=== PATIENT | female | born 2000 | race Two or more races ===

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

== ENCOUNTER 2019-06-17 05:52 | Emergency (ER) | payer BC ==
[~2019-06-17] VITALS: Ht 160 cm; Wt 56.8 kg
[2019-06-17] MEDS ORDERED: NS 1,000 ML IV ONE (06:45)
[2019-06-17] MEDS ORDERED: diphenhydrAMINE INJ 50MG/ML VIAL (J1200) IV ONE (06:45)
[2019-06-17] MEDS ORDERED: methylPREDNISolone INJ 125 MG/2 ML VIAL (J2930) IV ONE (06:45)
[2019-06-17 06:55] LABS: BASO % 0.4 % (0.0-1.0); EOS # 0.1 10^3/uL (0.0-0.5); EOS % 0.6 % (0.0-3.0); HEMATOCRIT 38.1 % (36.0-47.0); HEMOGLOBIN 12.9 g/dl (12.0-15.5); LYMPH # 3.5 10^3/uL (1.5-5.0); LYMPH % 43.8 % (24.0-44.0); MEAN CORPUSCULAR HGB CONC 33.9 g/dl (32.0-36.5); MEAN CORPUSCULAR VOLUME 88.6 fl (80.0-96.0); MONO # 0.9 10^3/uL (0.0-0.8); MONO % 11.5 % (0.0-5.0); NEUTROPHILS # 3.5 10^3/uL (1.5-8.5); NEUTROPHILS % 43.5 % (36.0-66.0); PLATELET COUNT, AUTOMATED 245 10^3/uL (150-450)
[2019-06-17 07:21] LABS: HCG, SERUM QUALITATIVE NEGATIVE (NEGATIVE)
[2019-06-17 07:23] LABS: ALBUMIN 3.8 GM/DL (3.2-5.2); ALT/SGPT 19 U/L (12-78); BILIRUBIN,TOTAL 0.5 MG/DL (0.2-1.0); BLOOD UREA NITROGEN 16 MG/DL (7-18); CARBON DIOXIDE LEVEL 23 MEQ/L (21-32); CHLORIDE LEVEL 109 MEQ/L (98-107); CREATININE FOR GFR 0.78 MG/DL (0.55-1.30); GLUCOSE, FASTING 87 MG/DL (70-100); SODIUM LEVEL 141 MEQ/L (136-145); TOTAL PROTEIN 6.9 GM/DL (6.4-8.2)
--- NOTE | 2019-06-17 07:57 | REP ---
Chest x-ray: Two views. History: Dyspnea and cough. No comparison study. Findings: The lungs are well inflated and clear. The pleural angles are sharp. Heart size is normal. Pulmonary vasculature is not increased. EKG monitoring electrodes are noted. No bony abnormality is seen. Impression: Negative chest x-ray. Electronically Signed by Hardy Willoughby MD 06/17/2019 07:48 A
[2019-06-17 08:14] VITALS: BP 106/66
[2019-06-17] MEDS ORDERED: PRED20TA PO (08:21)
== END 2019-06-17 08:40 | disposition home or self-care (01) ==
LOC: M ED 05:52
DX: R21 Rash and other nonspecific skin eruption (principal); L29.9 Pruritus, unspecified; T78.40XA Allergy, unspecified, initial encounter; X58.XXXA Exposure to other specified factors, initial encounter; Y92.89 Other specified places as the place of occurrence of the external cause
CPT/HCPCS: 71046; 80053; 84703; 85025; 87880; 93041; 94760; 96361; 96374; 96375; 99284; J1200; J2930

== ENCOUNTER → 2019-09-06 | Outpatient (CLI) | payer BC, MEDICAID ==
[~2019-09-06] MED LIST: PRED20TA PO
--- NOTE | 2019-09-06 12:12 | REP ---
PELVIC ULTRASOUND: Real-time sonographic evaluation of the pelvis is performed utilizing transabdominal and endovaginal technique. The bladder is collapsed. The uterus measures 10.4 x 4.9 x 5.7 cm. Endometrium is diffusely heterogeneous measuring 14 mm in AP dimension with mild complex fluid in the endometrial canal. This may represent hemorrhage. Ovaries are normal in size and echotexture, right ovary measuring 2.3 x 1.2 x 2.5 cm and left ovary 2.3 x 1.1 x 1.7 cm. There is no adnexal mass. There is no evidence of ovarian torsion with duplex Doppler evaluation. There is a small amount of free fluid in the cul-de-sac. IMPRESSION: Heterogeneous endometrium with mild complex fluid in the endometrial canal likely representing hemorrhage. Small amount of free fluid in the cul-de-sac.
== END ==
LOC: M WHC 10:41
PROVIDERS: ATTEND Nurse Practitioner Family
DX: Z09 Encounter for follow-up examination after completed treatment for conditions other than malignant neoplasm (principal); O03.9 Complete or unspecified spontaneous abortion without complication

== ENCOUNTER 2020-03-19 19:36 | Emergency (ER) | payer BC, MEDICAID ==
[~2020-03-19] VITALS: Ht 160 cm; Wt 53.3 kg
[2020-03-19] MEDS ORDERED: DICYCLOMINE 10 MG CAP PO ONE (21:15)
[2020-03-19 21:25] LABS: BASO % 0.2 % (0.0-1.0); EOS % 0.1 % (0.0-3.0); HEMATOCRIT 38.7 % (36.0-47.0); HEMOGLOBIN 12.6 g/dl (12.0-15.5); LYMPH # 2.5 10^3/uL (1.5-5.0); LYMPH % 19.7 % (24.0-44.0); MEAN CORPUSCULAR HEMOGLOBIN 29.2 pg (27.0-33.0); MEAN CORPUSCULAR HGB CONC 32.6 g/dl (32.0-36.5); MEAN CORPUSCULAR VOLUME 89.8 fl (80.0-96.0); MONO # 1.2 10^3/uL (0.0-0.8); MONO % 9.5 % (0.0-5.0); NEUTROPHILS # 8.9 10^3/uL (1.5-8.5); NEUTROPHILS % 69.9 % (36.0-66.0); PLATELET COUNT, AUTOMATED 290 10^3/uL (150-450); RED BLOOD COUNT 4.31 10^6/uL (4.00-5.40); WHITE BLOOD COUNT 12.8 10^3/uL (4.0-10.0)
[2020-03-19 21:45] VITALS: BP 121/61
[2020-03-19 21:50] LABS: HCG, SERUM QUALITATIVE POSITIVE (NEGATIVE)
[2020-03-19 21:53] LABS: ALT/SGPT 19 U/L (12-78); BILIRUBIN,DIRECT 0.2 MG/DL (0.0-0.2); BILIRUBIN,TOTAL 0.5 MG/DL (0.2-1.0); BLOOD UREA NITROGEN 15 MG/DL (7-18); CALCIUM LEVEL 9.3 MG/DL (8.5-10.1); CARBON DIOXIDE LEVEL 27 MEQ/L (21-32); CHLORIDE LEVEL 110 MEQ/L (98-107); CREATININE FOR GFR 0.67 MG/DL (0.55-1.30); GLOMERULAR FILTRATION RATE > 60.0 (>60); GLUCOSE, FASTING 52 MG/DL (70-100); LIPASE 234 U/L (73-393); POTASSIUM SERUM 3.7 MEQ/L (3.5-5.1); SODIUM LEVEL 139 MEQ/L (136-145); TOTAL PROTEIN 7.5 GM/DL (6.4-8.2)
[2020-03-19 23:00] LABS: HCG, SERUM QUANTITATIVE 33458 MIU/ML
[2020-03-20] MEDS ORDERED: REGL10TA6 PO (00:20)
[2020-03-20] MEDS ORDERED: MACR100C43 PO (00:20)
[2020-03-20] MEDS ORDERED: NITROFURANTOIN (MACROBID) 100 MG CAP PO ONE (00:30)
== END 2020-03-20 00:59 | disposition home or self-care (01) ==
LOC: M ED 19:36
DX: O23.41 Unspecified infection of urinary tract in pregnancy, first trimester (principal); Z3A.00 Weeks of gestation of pregnancy not specified
CPT/HCPCS: 36415; 80048; 80076; 81001; 83690; 84702; 84703; 85025; 87086; 99283; U0002; U0003

== ENCOUNTER → 2020-05-13 | Outpatient (CLI) | payer BC ==
[~2020-05-13] MED LIST changes: +MACR100C43 PO; +REGL10TA6 PO
--- NOTE | 2020-05-14 08:14 | REP ---
INDICATION: DATNG AND VIABILITY COMPARISON: None. TECHNIQUE: Transabdominal obstetrical ultrasound with color Doppler evaluation. FINDINGS: Examination demonstrates a single live intrauterine in transverse presentation. motion is identified by technologist. Placenta is noted anterior and grade 1 without evidence for placenta previa or abruption. Amniotic fluid volume is normal. Cervix measures 3.4 cm in length and appears closed. Presumed venous sher within the placenta noted. Gestational age by current measurements 15 weeks 0 days with NOHEMY 11/04/2020. FHR equals 149 beats per minute. IMPRESSION: Single live intrauterine measuring 15 weeks 0 days gestational age. Complete anatomical assessment should be performed at 19-20 weeks. <Electronically signed by Conrad Ang > 05/14/20 [id number]
== END ==
LOC: M WHC 11:52
PROVIDERS: ATTEND Advanced Practice Midwife
DX: Z34.92 Encounter for supervision of normal pregnancy, unspecified, second trimester (principal); Z3A.15 15 weeks gestation of pregnancy

== ENCOUNTER → 2020-06-05 | Outpatient (REF) | payer BC ==
[2020-06-05 18:55] LABS: HEMATOCRIT 35.7 % (36.0-47.0); HEMOGLOBIN 11.4 g/dl (12.0-15.5); MEAN CORPUSCULAR HEMOGLOBIN 29.9 pg (27.0-33.0); MEAN CORPUSCULAR HGB CONC 31.9 g/dl (32.0-36.5); MEAN CORPUSCULAR VOLUME 93.7 fl (80.0-96.0); PLATELET COUNT, AUTOMATED 265 10^3/uL (150-450); RED BLOOD COUNT 3.81 10^6/uL (4.00-5.40); WHITE BLOOD COUNT 9.1 10^3/uL (4.0-10.0)
[2020-06-05 20:00] LABS: HEPATITIS C VIRUS ABY INDEX < 0.0 INDEX (<0.8); HIV 1&2 SCREEN CENTAUR NEGATIVE (NEGATIVE)
== END ==
LOC: M PLALAB 12:10
PROVIDERS: ATTEND Advanced Practice Midwife
DX: Z34.93 Encounter for supervision of normal pregnancy, unspecified, third trimester (principal); Z3A.28 28 weeks gestation of pregnancy

== ENCOUNTER → 2020-06-05 | Outpatient (REF) | payer BC | LOC: M SFHCWAGY 19:02 | PROVIDERS: ATTEND Advanced Practice Midwife | DX: Z34.02 Encounter for supervision of normal first pregnancy, second trimester (principal); Z12.4 Encounter for screening for malignant neoplasm of cervix ==

== ENCOUNTER → 2020-06-21 | Outpatient (CLI) | payer BC ==
--- NOTE | 2020-06-21 14:25 | REP ---
INDICATION: ANATOMY/NOHEMY 11/04/20 COMPARISON: 05/13/2020 TECHNIQUE: Transabdominal obstetrical ultrasound with color Doppler evaluation. FINDINGS: Examination demonstrates a single live intrauterine in cephalic presentation. motion is identified by technologist. Placenta is noted anterior and grade 1 without evidence for placenta previa or abruption. Amniotic fluid volume is normal. Cervix measures 3.0 cm in length and appears closed.. Gestational age by LMP 20 weeks 4 days with NOHEMY 11/04/2020. Gestational age by current measurements 20 weeks 6 days with NOEHMY 11/02/2020. FHR equals 153 beats per minute. BPD: 4.9 cm at 20 weeks 6 days HC: 18.6 cm at 20 weeks 6 days AC: 15.8 cm at 20 weeks 6 days FL: 3.3 cm at 20 weeks 2 days HL: 3.3 cm at 21 weeks 2 days HC/AC: 1.18 Estimated weight 371 g grams (53rdpercentile). Anatomical assessment demonstrates normal structures including cranium, choroid plexus, cavum, cerebellum/posterior fossa, facial features, lungs, four-chamber heart/ventricular outflow tracts, diaphragm, stomach, cord insertion/three-vessel cord, kidneys/bladder, spine, and extremities. IMPRESSION: Single live intrauterine in cephalic presentation demonstrating appropriate estimated weight. Anatomical assessment is complete and normal. <Electronically signed by Conrad Ang > 06/21/20 [id number]
== END ==
LOC: M WHC 11:51
PROVIDERS: ATTEND Advanced Practice Midwife
DX: Z34.92 Encounter for supervision of normal pregnancy, unspecified, second trimester (principal); Z3A.20 20 weeks gestation of pregnancy

== ENCOUNTER → 2020-07-02 | Outpatient (REF) | payer BC | LOC: M PLALAB 15:44 | PROVIDERS: ATTEND Obstetrics & Gynecology | DX: Z36.89 Encounter for other specified antenatal screening (principal); Z3A.22 22 weeks gestation of pregnancy ==

== ENCOUNTER → 2020-09-24 | Outpatient (REF) | payer BC ==
[2020-09-24 17:23] LABS: HEMATOCRIT 32.2 % (36.0-47.0); HEMOGLOBIN 10.3 g/dl (12.0-15.5); MEAN CORPUSCULAR HEMOGLOBIN 29.1 pg (27.0-33.0); PLATELET COUNT, AUTOMATED 274 10^3/uL (150-450); RED BLOOD COUNT 3.54 10^6/uL (4.00-5.40); WHITE BLOOD COUNT 7.5 10^3/uL (4.0-10.0)
== END ==
LOC: M PLALAB 14:10
PROVIDERS: ATTEND Advanced Practice Midwife
DX: Z36.89 Encounter for other specified antenatal screening (principal); Z3A.25 25 weeks gestation of pregnancy

== ENCOUNTER → 2020-10-08 | Outpatient (REF) | payer BC | LOC: M SFHCWAGY 16:50 | PROVIDERS: ATTEND Advanced Practice Midwife | DX: Z34.83 Encounter for supervision of other normal pregnancy, third trimester (principal) ==

== ENCOUNTER 2020-10-27 04:28 | Inpatient (IN) | payer BC ==
[~2020-10-27] VITALS: Ht 160 cm; Wt 77.3 kg
[2020-10-27] VITALS (12 sets, daily range): BP systolic 102–135; BP diastolic 62–86
[2020-10-27] MEDS ORDERED: PRENTAB9 PO (05:24)
[2020-10-27] MEDS ORDERED: PENICILLIN G POTASSIUM IV 5 MU in D5W MINI-BAG PLUS 100 ML IV STA (08:53)
[2020-10-27] MEDS ORDERED: LACTATED RINGER'S 1000 ML IV STA (08:53)
[2020-10-27] MEDS ORDERED: OXYTOCIN DRIP 30 UNITS in IV 1 EA IV PRN (08:55)
[2020-10-27] MEDS ORDERED: LIDOCAINE 1% MDV 20ML VIAL INFIL PRN (08:55)
[2020-10-27] MEDS ORDERED: METHYLERGONOVINE MALEATE 0.2 MG/ML VIAL (J2210) IM PRN (08:55)
[2020-10-27] MEDS ORDERED: CARBOPROST TROMETHAMINE 250 MCG/ML AMP IM PRN (08:55)
[2020-10-27] MEDS ORDERED: TRANEXAMIC ACID INJection 1,000 MG in NS 100 ML IV PRN (08:55)
--- NOTE | 2020-10-27 09:08 | HPEPDOC ---
Obstetrical History & Physical General Date of Admission Oct 27, 2020 at 08:50 History of Present Illness 20-year-old G2, P0010 at 38+6 weeks gestation. Presents with frequent, painful uterine contractions over the past several hours. Denies any loss of fluid or vaginal bleeding. Reports regular movement. ROS: no MARTI, cp, sob, fever/chills/nausea/vomiting. 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 or dysplasia OB: EAB x1 Sochx: No tobacco, alcohol or drug use FamHx: None reported labs: Blood type B+, antibody screen negative, HepBsAg neg, HIV neg, rubella immune, Hep C antibody negative, RPR nonreactive, CT/GC neg, urine culture negative, 1 hour glucose challenge test 60, GBS positive imaging: no anomalies or placental abnormalities Past Medical History Allergies Coded Allergies: No Known Allergies (Unverified , 06/17/19) Medications Scheduled Nitrofurantoin Monohyd/M-Cryst (Macrobid 100 mg Capsule) 100 Mg Capsule, 100 MG PO BID No.137/Iron/Folic Acd ( Vitamin Tablet) 1 Each Tablet, 1 TAB PO DAILY Scheduled PRN Metoclopramide HCl (Reglan) 10 Mg Tablet, 10 MG PO Q6H PRN for NAUSEA Physical Examination Physical Examination GENERAL: Alert and oriented times three. ABDOMEN: Gravid and non-tender to touch. FETUS: Is vertex (VTX) by sterile vaginal examination (SVE), fetus is vertex (VT X) by Ramy. HEART RATE: Regular rate and rhythm. LUNGS: Clear to auscultation (CTA). EXTREMITIES: No edema. No clonus. SVE: 4 cm 75% effaced -3 station intact membranes bulging membranes no bloody show cephalic EFM: Category 1 [place]: Contractions every 3 to 5 minutes. Vital Signs/I&O Vital Signs Date Time Temp Pulse Resp B/P (MAP) Pulse Ox O2 Delivery O2 Flow Rate FiO2 10/27/20 07:18 77 16 130/77 (94) 10/27/20 04:50 97.1 Laboratory Data 24H LABS Laboratory Tests 2 10/27/20 09:01: Serology Scanned Report Hepatitis B Testing Assessment/Plan Assessment 20-year-old -0-1-0 at 38+6 weeks gestation in spontaneous active labor. Reassuring maternal status. Plan Admit and orient. Trichologist and consent. Group B Streptococcus (GBS) positive; treat/prophylaxis with penicillin Labs and intravenous (IV) per unit protocol. Anticipate . C-S as appropriate. GISELLE BENEDICT DO Oct 27, 2020 09:08
[2020-10-27 09:20] LABS: HEMATOCRIT 32.3 % (36.0-47.0); HEMOGLOBIN 10.9 g/dl (12.0-15.5); MEAN CORPUSCULAR HGB CONC 33.7 g/dl (32.0-36.5); MEAN CORPUSCULAR VOLUME 85.9 fl (80.0-96.0); PLATELET COUNT, AUTOMATED 301 10^3/uL (150-450); RED BLOOD COUNT 3.76 10^6/uL (4.00-5.40); WHITE BLOOD COUNT 12.1 10^3/uL (4.0-10.0)
[2020-10-27] MEDS ORDERED: BUTORPHANOL 2 MG/ML INJ (J0595) IV ONE ×2 (10:10→20:40)
[2020-10-27] MEDS ORDERED: PROMETHAZINE INJ 25 MG/ML VIAL (J2550) IV ONE ×2 (10:10→20:40)
[2020-10-27] MEDS: LR 1,000 ML IV SCH ×2 (10:14→17:09)
[2020-10-27] MEDS: PENICILLIN G POTASSIUM IV 2.5 MU in IV 1 EA IV SCH ×3 (12:53→20:55)
--- NOTE | 2020-10-27 20:34 | IPNPDOC ---
Obstetrical Progress Note Date of Service Oct 27, 2020 Subjective Patient feeling very uncomfortable with contractions. No VB/LOF. Objective Vital Signs Date Time Temp Pulse Resp B/P (MAP) Pulse Ox O2 Delivery O2 Flow Rate FiO2 10/27/20 18:42 99.2 67 18 105/62 (76) Assessment Heart Rate Tracing: Category I Tocometer Frequency: every 2-5 min. Sterile Vaginal Examination Dilation: 6 cm Effacement (%): 90% Station: -2 Cervical Consistency: Soft Cervical Position: Anterior Postion/Presentation: Cephalic presentation Assessment and Plan Status: Reassuring Anticipate: Vaginal Delivery Additional Comments Continue current management. Patient considering pain control options. Reassuring maternal and status. GISELLE BENEDICT DO Oct 27, 2020 20:34
[2020-10-28] VITALS (14 sets, daily range): BP systolic 106–147; BP diastolic 62–83
[2020-10-28] MEDS: PENICILLIN G POTASSIUM IV 2.5 MU in IV 1 EA IV SCH (00:48)
--- NOTE | 2020-10-28 02:24 | IPNPDOC ---
Obstetrical Progress Note Date of Service Oct 28, 2020 Subjective Patient still feeling very uncomfortable. No VB/LOF Objective Vital Signs Date Time Temp Pulse Resp B/P (MAP) Pulse Ox O2 Delivery O2 Flow Rate FiO2 10/27/20 20:56 18 10/27/20 18:42 99.2 67 105/62 (76) Assessment Heart Rate Tracing: Category I Tocometer Frequency: every 2-5 min. Sterile Vaginal Examination Dilation: 7 cm Effacement (%): 90% Station: -1 Cervical Consistency: Soft Cervical Position: Anterior Postion/Presentation: Cephalic presentation Assessment and Plan Status: Reassuring Anticipate: Vaginal Delivery Additional Comments AROM, clear. Active labor. Reassuring maternal and status. GISELLE BENEDICT DO Oct 28, 2020 02:24
[2020-10-28] MEDS ORDERED: FENTANYL 2MCG/ML ROPIVACAINE 0.2% IN 0.9% NACL 100ML IVBAG As Ordered ONE (02:29)
[2020-10-28] MEDS ORDERED: OXYTOCIN 30 UNITS IN 0.9% NaCl 500ML IV BAG (J2590) As Ordered ONE (03:58)
[2020-10-28] MEDS ORDERED: NALOXONE INJ 0.4MG/1ML VIAL (J2310 PER 1MG) IV PRN (05:30)
[2020-10-28] MEDS ORDERED: ONDANSETRON 4MG/2ML VIAL IV PRN ×2 (05:30→06:55)
[2020-10-28] MEDS ORDERED: diphenhydrAMINE 50MG/ML VIAL (J1200) IV PRN (05:30)
[2020-10-28] MEDS ORDERED: EPIDURAL COMMENT XX SCH (05:30)
[2020-10-28] MEDS ORDERED: REFRIGERATOR IV KEYS XX PRN (05:30)
[2020-10-28] MEDS ORDERED: FENTANYL/ROPIVACAINE/NACL BAG 100 ML EPIDURAL SCH (05:30)
[2020-10-28] MEDS ORDERED: EPIDURAL/PCA KEYS XX PRN (05:30)
[2020-10-28] MEDS ORDERED: ePHEDrine SULFATE 25 MG/5 ML(5MG/ML) SYRINGE IV PRN (05:30)
[2020-10-28] MEDS ORDERED: LACTATED RINGER'S 1000 ML IV PRN (05:30)
[2020-10-28] MEDS ORDERED: MEASLES,MUMPS,RUBELLA VACCINE INJ (MMR-II) (90707) SC SCH (06:55)
[2020-10-28] MEDS ORDERED: ACETAMINOPHEN TAB 650MG DOSE (2X325MG) PO PRN (06:55)
[2020-10-28] MEDS ORDERED: DOCUSATE SODIUM 100MG CAPSULE PO PRN (06:55)
[2020-10-28] MEDS ORDERED: RHOGAM 300 MCG (1500 IU) INJ (J2790) IM SCH (06:55)
[2020-10-28] MEDS ORDERED: LR 1,000 ML IV SCH (06:55)
[2020-10-28] MEDS ORDERED: IBUPROFEN 600MG TAB PO PRN (06:55)
[2020-10-28] MEDS ORDERED: DIBUCAINE 1% OINTMENT 30GM TOP PRN (06:55)
[2020-10-28] MEDS ORDERED: OXYTOCIN DRIP 30 UNITS in IV 1 EA IV SCH (06:55)
--- NOTE | 2020-10-28 06:58 | DNPDOC ---
[facility] Delivery Note Delivery Note DATE OF DELIVERY: 10/28/2020 TIME OF DELIVERY: 0640 Spontaneous vaginal delivery. METAL LOADER: Dr. Nicko Stuart DO FACOG ANESTHESIA: Epidural LACERATION: First-degree ESTIMATED BLOOD LOSS: 300 mL. FINDINGS: 7 pound 7 ounce (3360 g) male infant, Score 8 and 9. DELIVERY SUMMARY: The active phase and second stage of labor progressed in normal fashion. The head delivered in the JOHN position, and restituted LOT. No nuchal cord was noted. The anterior shoulder delivered with gentle downward guidance and the remainder of the body delivered with ease. The baby was placed on the patient's chest. Delayed cord clamping occurred for approximately 1 minute. The cord was then doubly clamped and cut. IV Pitocin was bolused to actively manage the third stage of labor. The placenta delivered intact without any difficulty within 10 minutes of delivery. The uterine fundus was noted to be firm and 2 cm below the umbilicus. The cervix, vagina, vulva and perineum were inspected. A first-degree laceration was noted and immediately repaired with 3-0 Vicryl in typical fashion. Excellent hemostasis was noted. Sponge, needle and instrument counts were correct per protocol. DO SELENA Gaitan JONATHAN R. DO Oct 28, 2020 06:58
[2020-10-28] MEDS: IBUPROFEN 800 MG TAB PO PRN (08:33)
[2020-10-28] MEDS: PRENATAL VITAMINS CHEWABLE TABLET PO SCH (10:40)
[2020-10-28] MEDS: ACETAMINOPHEN 500 MG TAB PO PRN (15:22)
[2020-10-29 05:35] VITALS: BP 123/87
[2020-10-29] MEDS: PRENATAL VITAMINS CHEWABLE TABLET PO SCH (08:21)
[2020-10-29] MEDS: IBUPROFEN 800 MG TAB PO PRN ×2 (08:21→20:11)
[2020-10-29 17:50] VITALS: BP 136/76
[2020-10-29] MEDS: ACETAMINOPHEN 500 MG TAB PO PRN (19:29)
[2020-10-30] MEDS: IBUPROFEN 800 MG TAB PO PRN (05:33)
[2020-10-30 06:00] VITALS: BP 120/75
[2020-10-30] MEDS ORDERED: ACET-683 PO (07:22)
[2020-10-30] MEDS ORDERED: IBUP80TA PO (07:22)
[2020-10-30] MEDS: PRENATAL VITAMINS CHEWABLE TABLET PO SCH (07:48)
[2020-10-30] MEDS ORDERED: medroxyPROGESTERone ACET IM SUSP 150 MG/ML VIAL (J1050) IM ONE (08:25)
== END 2020-10-30 12:17 | disposition home or self-care (01) | DRG 560 ==
LOC: M LDO 04:28 → M LDI 08:50 → M OBS 10-28 08:15
PROVIDERS: ADMIT Obstetrics & Gynecology; ATTEND Obstetrics & Gynecology
PROC: 10E0XZZ Delivery of Products of Conception, External Approach (ICD-10-PCS; principal; 2020-10-28)
PROC: 0HQ9XZZ Repair Perineum Skin, External Approach (ICD-10-PCS; 2020-10-28)
PROC: 10907ZC Drainage of Amniotic Fluid, Therapeutic from Products of Conception, Via Natural or Artificial Opening (ICD-10-PCS; 2020-10-28)
DX: O99.824 Streptococcus B carrier state complicating childbirth (principal); Z3A.38 38 weeks gestation of pregnancy; O70.0 First degree perineal laceration during delivery; Z37.0 Single live birth

== ENCOUNTER → 2020-11-05 | Outpatient (REF) | payer BC ==
[~2020-11-05] MED LIST changes: +ACET-683 PO; +IBUP80TA PO; +PRENTAB9 PO
[2020-11-05 21:38] LABS: APPEARANCE, URINE CLOUDY (CLEAR); BACTERIA, URINE AUTO NEGATIVE (NEGATIVE); BILIRUBIN, URINE AUTO NEGATIVE (NEGATIVE); BLOOD, URINE BLOOD 3+ (NEGATIVE); COLOR, URINE YELLOW (YELLOW); GLUCOSE, URINE (UA) AUTO NEGATIVE (NEGATIVE); KETONE, URINE AUTO NEGATIVE (NEGATIVE); LEUKOCYTE ESTERASE, URINE AUTO 2+ (NEGATIVE); MUCUS, URINE SMALL (NEGATIVE); NITRITE, URINE AUTO NEGATIVE (NEGATIVE); PROTEIN, URINE AUTO 1+ mg/dL (NEGATIVE); RBC, URINE AUTO 182 /HPF (0-3); SPECIFIC GRAVITY URINE AUTO 1.031 (1.002-1.035); SQUAMOUS EPITHELIAL CELL UR AU 2 /HPF (0-6); UROBILINOGEN, URINE AUTO 0.2 mg/dL (0.0-2.0); WBC, URINE AUTO 101 /HPF (0-3)
== END ==
LOC: M LAB REF 21:16
PROVIDERS: ATTEND Physician Assistant Medical
DX: N39.0 Urinary tract infection, site not specified (principal)

== ENCOUNTER → 2020-12-13 | Outpatient (REF) | payer BC | LOC: M SFHCWAGY 13:06 | PROVIDERS: ATTEND Obstetrics & Gynecology | DX: R30.0 Dysuria (principal) ==

== ENCOUNTER → 2021-01-28 | Outpatient (REF) | payer BC ==
[2021-01-28 22:20] LABS: GC DNA AMPLIFICATION NEGATIVE (NEGATIVE)
== END ==
LOC: M SFHCWAGY 17:43
PROVIDERS: ATTEND Obstetrics & Gynecology
DX: Z12.4 Encounter for screening for malignant neoplasm of cervix (principal); Z11.3 Encounter for screening for infections with a predominantly sexual mode of transmission
CPT/HCPCS: 87491; 87591; 87661; G0123

== ENCOUNTER → 2021-08-20 | Outpatient (REF) | payer BC | LOC: M LAB REF 12:21 | PROVIDERS: ATTEND Physician Assistant | DX: J02.9 Acute pharyngitis, unspecified (principal); R52 Pain, unspecified ==

== ENCOUNTER 2024-03-22 20:34 | Emergency (ER) | payer BC ==
[~2024-03-22] VITALS: Ht 160 cm; Wt 65.4 kg
[2024-03-22 20:39] VITALS: BP 146/88; TEMP 98.5; O2SAT 98
== END 2024-03-22 23:18 | disposition home or self-care (01) ==
LOC: M ED 20:34
DX: S90.32XA Contusion of left foot, initial encounter (principal); Y92.019 Unspecified place in single-family (private) house as the place of occurrence of the external cause; Y93.9 Activity, unspecified; Y99.9 Unspecified external cause status; Z79.1 Long term (current) use of non-steroidal anti-inflammatories (NSAID); Z79.810 Long term (current) use of selective estrogen receptor modulators (SERMs)